=== PATIENT | female | born 1970 | race African-American/Black ===

== ENCOUNTER 2019-01-30 17:45 | Emergency (ER) | payer MEDICAID, OTHER ==
[~2019-01-30] VITALS: Ht 162.6 cm; Wt 148.0 kg
[~2019-01-30 17:45] MED LIST: ALBU18HF2; FLUT1DIS; LORA-250; QUET100T
[2019-01-30] MEDS ORDERED: HYDROCODONE/ACETAMINOPHEN 5/325MG TABLET PO ONE (20:15)
[2019-01-30 21:57] VITALS: BP 150/95
== END 2019-01-30 22:19 | disposition home or self-care (01) ==
LOC: ER 17:45
DX: S16.1XXA Strain of muscle, fascia and tendon at neck level, initial encounter (principal); F12.10 Cannabis abuse, uncomplicated; Z98.890 Other specified postprocedural states; V43.52XA Car driver injured in collision with other type car in traffic accident, initial encounter; Y93.89 Activity, other specified; Y92.488 Other paved roadways as the place of occurrence of the external cause
CPT/HCPCS: 81025; 99284

== ENCOUNTER 2020-12-01 01:37 | Emergency (ER) | payer MEDICAID ==
[~2020-12-01] VITALS: Ht 170.2 cm; Wt 108.0 kg
[2020-12-01] MEDS ORDERED: ONDANSETRON HCL 4MG/2ML INJ IV STA (02:12)
[2020-12-01] MEDS ORDERED: MORPHINE SULFATE 4 MG/ML CPJ (NOT FOR IM USE) IV STA ×3 (02:12→05:12)
[2020-12-01 02:34] LABS: BASOPHILS % 0.4 % (0.0-2.0); EOSINOPHILS % 0.9 % (0.0-5.0); HEMATOCRIT. 39.6 % (36.0-48.0); HEMOGLOBIN. 12.7 g/dL (12.0-16.0); LYMPHOCYTES % 10.3 % (20.0-50.0); MEAN CORPUSCULAR VOLUME 78.1 fL (81.0-99.0); MEAN PLATELET VOLUME 8.5 fl (7.4-10.4); MONOCYTES % 4.7 % (2.0-8.0); NEUTROPHILS % 83.7 % (40.0-76.0); PLATELET 275 x1000/uL (130-400); RED BLOOD CELL COUNT 5.07 mill/uL (4.2-5.4); RED CELL DISTRIBUTION WIDTH 17.6 % (11.6-14.6)
[2020-12-01 02:39] LABS: CHLORIDE 104 mEq/L (98-107)
[2020-12-01 02:43] LABS: ETHANOL BLOOD < 10 mg/dL
[2020-12-01] MEDS ORDERED: TETRACAINE 0.5% OPHTH DROPS 4ML LEFTEYE ONE (04:15)
[2020-12-01] MEDS ORDERED: BALANCED SALT IRRIG SOLN 15ML IR ONE (04:15)
[2020-12-01] MEDS ORDERED: FLUORESCEIN SODIUM 1MG/STRIP LEFTEYE ONE (05:00)
[2020-12-01] MEDS ORDERED: LORAZEPAM 2MG/ML CPJ IV ONE (05:15)
[2020-12-01] MEDS ORDERED: HYDR-4346 PO (06:37)
[2020-12-01 07:13] VITALS: BP 133/84
== END 2020-12-01 07:14 | disposition home or self-care (01) ==
LOC: ER 01:37
DX: S02.32XA Fracture of orbital floor, left side, initial encounter for closed fracture (principal); S00.83XA Contusion of other part of head, initial encounter; J45.909 Unspecified asthma, uncomplicated; Y04.0XXA Assault by unarmed brawl or fight, initial encounter; Y07.03 Male partner, perpetrator of maltreatment and neglect; Y93.89 Activity, other specified; Y92.018 Other place in single-family (private) house as the place of occurrence of the external cause
CPT/HCPCS: 36415; 70450; 70486; 80048; 80307; 80320; 80329; 85025; 96374; 96375; 96376; 99285; J2060; J2270; J2405; G0480

== ENCOUNTER 2022-12-31 21:42 | Emergency (ER) | payer MEDICAID ==
[~2022-12-31] VITALS: Ht 167.6 cm; Wt 123.0 kg
[~2022-12-31 21:42] MED LIST changes: +HYDR-4346 PO
[2022-12-31 21:47] VITALS: TEMP 98.8; O2SAT 98
[2022-12-31] MEDS ORDERED: HYDROCODONE/ACETAMINOPHEN 5/325MG TABLET PO STA (23:03)
[2023-01-01] MEDS ORDERED: HYDROCODONE/ACETAMINOPHEN 5/325MG TABLET PO STA (03:48)
[2023-01-01] MEDS ORDERED: TETRACAINE 0.5% OPHTH DROPS 4ML LEFTEYE ONE (04:15)
[2023-01-01] MEDS ORDERED: FLUORESCEIN SODIUM 1MG/STRIP LEFTEYE ONE (04:15)
[2023-01-01] MEDS ORDERED: HYDROCODONE/ACETAMINOPHEN 5/325MG TABLET PO NR (06:15)
[2023-01-01] MEDS ORDERED: TOPUD PO (07:11)
[2023-01-01 07:52] VITALS: BP 126/78; PULSE 88; RESP 16
== END 2023-01-01 07:54 | disposition home or self-care (01) ==
LOC: ER 21:42
DX: S02.85XA Fracture of orbit, unspecified, initial encounter for closed fracture (principal); H05.232 Hemorrhage of left orbit; J45.909 Unspecified asthma, uncomplicated; M25.571 Pain in right ankle and joints of right foot; Y08.89XA Assault by other specified means, initial encounter; Y93.89 Activity, other specified; Y92.89 Other specified places as the place of occurrence of the external cause; Y99.8 Other external cause status
CPT/HCPCS: 70486; 72100; 73110; 73610; 99284